=== PATIENT | male | born 1950 | race Caucasian/White ===

== ENCOUNTER 2019-08-11 16:08 | Observation (INO) ==
[2019-08-11] MEDS ORDERED: ASPIRIN PO ONE (16:20)
[2019-08-11 16:33] LABS: BASO# 0.02 X1000 (0.0-0.2); BASO% 0.3 % (0.0-0.8); EOS# 0.47 X1000 (0.0-0.7); EOS% 6.4 % (0.0-10.0); HEMATOCRIT 43.7 % (42.0-52.0); HEMOGLOBIN 14.9 g/dL (14.0-18.0); IMM GRAN# 0.01 X1000 (0.0-0.04); IMM GRAN% 0.1 % (0.0-0.5); LYMPH# 2.44 X1000 (1.2-3.4); MCHC 34.1 g/dL (33-37); MONO# 0.83 X1000 (0.11-0.59); MONO% 11.2 % (1.7-9.3); MPV 11.1 FL (7.4-10.4); NEUT# 3.63 X1000 (1.4-6.5); PLT 246 X1000 (130-400); RDW 11.9 % (11.5-14.5)
[2019-08-11 16:47] LABS: INR 0.93; PROTIME 12.9 Seconds (11.0-16.0)
[2019-08-11 16:48] LABS: PTT 30.4 Seconds (22.3-41.8)
[2019-08-11 16:56] LABS: AGAP 13; ALBUMIN 4.9 g/dL (3.5-5.0); ALKALINE PHOSPHATASE 95 U/L (32-122); BUN 13 mg/dL (8-22); CALCIUM 9.4 mg/dL (8.8-10.2); CHLORIDE 98 mmol/L (98-107); CK PROFILE 38 U/L (24-204); COSMO 278; CREATININE 0.7 mg/dL (0.7-1.2); ESTIMATED GFR > 60; GLUCOSE 113 mg/dL (70-104); GOT 14 U/L (10-34); GPT 10 U/L (10-44); POTASSIUM 3.9 mmol/L (3.5-5.1); SODIUM 139 mmol/L (136-145); TCO2 28 mmol/L (25-35); TOTAL PROTEIN 7.6 g/dL (6.3-8.3)
--- NOTE | 2019-08-11 18:31 | Vascular Study Report ---
EXAM: Carotid Ultrasound INDICATION: TIA TECHNIQUE: COMPARISON: None. FINDINGS: Right: There are atherosclerotic plaques with calcification at the carotid carotid bulb extending into the proximal ICA. The peak systolic velocity measures 88, 61, 59, 52, 49, 63, and 75 cm/s at the right subclavian artery, CCA, bifurcation, proximal ICA, mid ICA, distal ICA, and ECA, respectively. There is antegrade flow in the vertebral artery. The carotid ratio is 1.03. Left: There is extensive atherosclerotic plaque including calcification associated with the carotid bulb and extending into the proximal ICA and ECA. The peak systolic velocity measures 75, 60, 143, 120, 178, 76, and 114 cm/s at the left subclavian artery, CCA, bifurcation, proximal ICA, mid ICA, distal ICA, and ECA, respectively. There is antegrade flow in the vertebral artery. The carotid ratio is 2.94. This suggests a 60-79% stenosis. IMPRESSION: Bilateral atherosclerotic plaque as described that is worst on the left with flow dynamics on the left suggesting 60-79% stenosis of the proximal left ICA. Electronically signed by Jona Umana 08/11/2019 6:28 PM
--- NOTE | 2019-08-11 18:42 | Diag Imaging Result Doc PS360 ---
EXAM: CT HEAD W/O CONTRAST INDICATION: RIGHT WEAKNESS TECHNIQUE: This exam was performed using automated exposure control, adjustment of mA or kV according to patient size, and/or use of iterative reconstruction technique. COMPARISON: None. FINDINGS: There is no definite acute infarct given the limited sensitivity of CT versus MRI. There is no discrete intracranial mass, mass effect, or intracranial hemorrhage. The surrounding soft tissues and bony structures are essentially unremarkable. IMPRESSION: No evidence of acute intracranial pathology by CT. Electronically signed by Jona Umana 08/11/2019 6:40 PM
--- NOTE | 2019-08-11 18:44 | EKG Report ---
Test Performed on : 08/11/2019 4:15:30 PM Test Reason : CHEST PAIN Blood Pressure : / mmHG Vent. Rate : 081 BPM Atrial Rate : 081 BPM P-R Int : 162 ms QRS Dur : 084 ms QT Int : 396 ms P-R-T Axes : 076 -09 055 degrees QTc Int : 460 ms Normal sinus rhythm. Possible Left atrial enlargement Borderline ECG When compared with ECG of 17-JUL-2019 15:55, (Unconfirmed) No significant change was found Unconfirmed Result
[2019-08-11] MEDS: NORCO-7.5 PO SCH ×2 (18:45→23:52)
[2019-08-11] MEDS ORDERED: APRESOLINE PO SCH (18:45)
--- NOTE | 2019-08-11 18:50 | PROVIDER DOCUMENTATION ---
This chart was entered by Tevin Horowitz Scribe, acting as scribe for Lakhwinder Cantrell MD. HPI-Neurological Disorder - General Chief Complaint: Chest Pain Stated Complaint: CHEST PAIN,SOB Time Seen by Provider: 08/11/19 16:19 Source: patient Allergies/Adverse Reactions: Patient Allergies Allergy/AdvReac Type Severity Reaction Status Date / Time No Known Allergies Allergy Verified 03/04/15 11:23 Home Medications: Home Medication List Medication Instructions Recorded Confirmed Last Taken Type Meclizine HCl 25 mg PO TID PRN #21 tab 07/17/19 Unknown Rx Ondansetron Odt [Zofran 4 mg Odt] 4 mg PO Q6H PRN PRN #20 tab 07/17/19 Unknown Rx Polyethylene Glycol 3350 [Miralax] 17 gm PO DAILY #30 powd.pack 07/17/19 Unknown Rx - History of Present Illness-Neuro Nature of Presenting Problem: Pt is a 69 y/o M who reports this morning he had a dizzy spell and felt weakness on his right side where he could not move his arm and right foot the way he wanted. He says he thinks he is alright now. Severity: reports: mild Onset/Duration: reports: this morning Timing: reports: gone now Context: reports: none Character of Altered Mental Status: reports: other (right sided weakness) Character of Deficits: reports: new weakness New weakness or altered sensation location:: reports: RUE, RLE Cognitive Baseline: alert, oriented x3 Gait Baseline: walks without assistance Associated Symptoms: reports: dizziness. denies: fever/chills, seizures, slurred speech, vision changes Similar Symptoms Previously?: Yes Recently seen or treated by another doctor?: No Review of Systems - Adult - REVIEW OF SYSTEMS - ADULT Constitutional: denies: chills, fever Eyes: reports: no symptoms reported Ears, Nose, Mouth & Throat: reports: no symptoms reported Cardiovascular: denies: chest pain, edema Respiratory: reports: no symptoms reported Gastrointestinal: denies: nausea, vomiting Genitourinary: denies: dysuria, discharge Musculoskeletal: denies: back pain, neck pain Integumentary: reports: no symptoms reported Neurological: reports: dizziness/vertigo, loss of balance. denies: headache/migraines, slurred speech Psychiatric: denies: anxiety, insomnia, panic attacks Endocrine: reports: no symptoms reported Hematologic/Lymphatic: reports: no symptoms reported Allergic/Immunologic: reports: no symptoms reported All Other Systems: Reviewed and Negative Past History - Adult - PAST MEDICAL HISTORY-ADULT Review of Records: reports: Old Records Reviewed, Nursing Assessment Review, Medications Reviewed Major Childhood Illnesses: reports: denies history Cardiovascular: reports: denies history Respiratory: reports: denies history Gastrointestinal: reports: denies history Obstetrical/Gynecological: reports: denies history Genitourinary: reports: denies history Musculoskeletal: reports: denies history Neurological: reports: denies history Endocrine/Immune: reports: denies history Other Conditions: reports: denies history - IMMUNIZATION STATUS Childhood Immunizations: See Nurse Assessment Flu Vaccine: See Nurse Assessment - FAMILY HISTORY Family History: reviewed, not pertinent - SOCIAL HISTORY Smoking: greater than 1 pack/day Substance Use: alcohol Alcohol Use Frequency: occasionally Living Situation: family Physical Exam- Neurological - Physical Exam-Neuro Initial Vital Signs Reviewed: Yes General Appearance: appears well, alert, no apparent distress Eye Exam: bilateral eye: normal inspection, PERRL HENMT: moist mucous membranes, normal ENT inspection Head Injury: no evidence of injury. negative: active bleeding Neck: full range of motion, supple, normal inspection Respiratory: lungs clear, no pleuratic chest pain, no respiratory distress, no accessory muscle use Cardiovascular: normal peripheral pulses, regular rate, rhythm Abdominal Exam: normal bowel sounds, non tender Extremity: normal range of motion, non-tender, normal gait epidemiology internship Exam: normal hearing, normal speech, PERRL Coordination/Gait: normal finger to nose, normal gait Motor/Sensory: no motor deficit, no sensory deficit, no pronator drift Neurologic: grossly normal, no motor/sensory deficits. negative: aphasia, facial droop, motor weakness Integumentary: normal color, normal turgor, warm/dry Progress - PLAN OF CARE/RESULTS Progress/Plan/Lab Results: Vital Signs - 8 hr 08/11/19 16:17 08/11/19 18:35 Temperature 98.2 F 98.1 F Pulse Rate 77 65 Respiratory Rate 18 21 Blood Pressure 178/114 145/93 O2 Sat by Pulse Oximetry 96 95 Laboratory Results - last 24 hr 08/11/19 08/11/19 08/11/19 16:15 16:15 16:15 WBC RBC Hgb Hct MCV MCH MCHC RDW Std Deviation Plt Count MPV Immature Gran % (Auto) Neut % (Auto) Lymph % (Auto) Citrus % (Auto) Eos % (Auto) Baso % (Auto) Immature Gran # (Auto) Neut # (Auto) Lymph # (Auto) Citrus # (Auto) Eos # (Auto) Baso # (Auto) PT INR PTT (Actin FS) Sodium 139 Potassium 3.9 Chloride 98 Carbon Dioxide 28 Anion Gap 13 BUN 13 Creatinine 0.7 Estimated GFR/1.73 m2 > 60 BUN/Creatinine Ratio 19 Glucose 113 H Calculated Osmolality 278 Calcium 9.4 Total Bilirubin 0.50 AST 14 ALT 10 Alkaline Phosphatase 95 Creatine Kinase 38 Troponin T High Sens 8 Bbr-B-Oufakzymtqn Pept 102 Total Protein 7.6 Albumin 4.9 Globulin 3.0 Albumin/Globulin Ratio 2.0 08/11/19 08/11/19 16:15 16:15 WBC 7.40 RBC 4.80 Hgb 14.9 Hct 43.7 MCV 91.0 MCH 31.0 MCHC 34.1 RDW Std Deviation 11.9 Plt Count 246 MPV 11.1 H Immature Gran % (Auto) 0.1 Neut % (Auto) 49.0 Lymph % (Auto) 33.0 Citrus % (Auto) 11.2 H Eos % (Auto) 6.4 Baso % (Auto) 0.3 Immature Gran # (Auto) 0.01 Neut # (Auto) 3.63 Lymph # (Auto) 2.44 Citrus # (Auto) 0.83 H Eos # (Auto) 0.47 Baso # (Auto) 0.02 PT 12.9 INR 0.93 PTT (Actin FS) 30.4 Sodium Potassium Chloride Carbon Dioxide Anion Gap BUN Creatinine Estimated GFR/1.73 m2 BUN/Creatinine Ratio Glucose Calculated Osmolality Calcium Total Bilirubin AST ALT Alkaline Phosphatase Creatine Kinase Troponin T High Sens Qlw-H-Uncdprjdhxv Pept Total Protein Albumin Globulin Albumin/Globulin Ratio Orders Category Date Time Status Admit - [facility] Routine AdmDCTranf 08/11/19 18:35 Active Activity - Bed Rest with BRP ORDERED Care 08/11/19 18:35 Active Call Admitting on Arrival AT ADMISSION Care 08/11/19 18:37 Active Cardiac Monitoring DIRECTED Care 08/11/19 16:20 Active Neurological Check Q2H Care 08/11/19 18:35 Active Oxygen Therapy- ED Nursing DIRECTED Care 08/11/19 16:20 Active Saline Loc NOW Care 08/11/19 16:20 Active Z-Document. for Tele Applied ORDERED Care 08/11/19 18:37 Active Heart Healthy Diet Diet 08/11/19 18:38 Active CHEST-2 VIEWS [RAD] Stat Exams 08/11/19 16:[address] HEAD W/O CONTRAST [CT] Stat Exams 08/11/19 17:56 Completed CBC WITH ELECTRONIC DIFF [HEME] Stat Lab 08/11/19 16:15 Completed CK PROFILE [SP CHEM] Stat Lab 08/11/19 16:15 Completed COMPREHENSIVE METABOLIC PANEL [CHEM] Stat Lab 08/11/19 16:15 Completed PRO B-NATRIURETIC PEPTIDE Stat Lab 08/11/19 16:15 Completed PROTIME WITH INR [COAG] Stat Lab 08/11/19 16:15 Completed PTT [COAG] Stat Lab 08/11/19 16:15 Completed TROPONIN T HIGH SENSITIVITY Stat Lab 08/11/19 16:15 Completed Aspirin Med 08/11/19 16:20 Discontinued 325 mg PO NOW ONE Hydralazine [Apresoline] Med 08/11/19 18:45 Ordered 10 mg PO Q76H Hydrocodone/APAP 7.5 mg/325 mg [[place]-7.5] Med 08/11/19 18:45 Ordered 1 each PO Q6H CP/SOB/Palp >45 yrs of Age Stat Oth 08/11/19 16:20 Ordered Oxygen Device Routine Oth 08/11/19 18:37 Active Telemetry [OM.EQ] Routine Oth 08/11/19 18:35 Active Carotid Ultrasound Stat Ther 08/11/19 16:51 Completed EKG [EKG] Stat Ther 08/11/19 16:20 Draft Transfer/Admit Order [TRANSFER] Routine Transfer 08/11/19 18:34 Ordered Result Diagrams: 08/11/19 16:15 08/11/19 16:15 - REASSESSMENT Reassessment #1 Time Reassessed: 16:45 (Pt reported he felt some weakness again in his right arm with some tremor when reaching) Status: worsening - EKG 1 Time of EKG reading by physician:: 16:15 EKG Read and Signed by:: Lakhwinder Cantrell EKG Interpretation (*Must complete 3 of following elements*): Abnormal Rate: 81 Rhythm: NSR Ferron: normal Comments: Possible left atrial enlargement Departure - Departure Date of Disposition Decision: 08/11/19 Time of Disposition Decision: 18:47 DIAGNOSIS: TIA (transient ischemic attack) Disposition: ADMITTED INPATIENT 09 Certified Medical Emergency: Emergent Condition: Stable Referrals and Follow-Ups: Kevin Dougherty [Primary Care Provider] - - Critical Care Note This patient required my direct & personal management of CC.: Yes Total Time (mins): 30 Critical Care Statement: This patient required my direct personal management to treat or rule out processes, the absence of which, could potentiallly result in sudden, clinically significant life or limb threatening deterioration. Attestation - Physician/ GETACHEW Attestation Patient care was provided by Advanced Practice Provider:: No The physician spent face to face time with patient:: Yes Advanced Practice Provider documentation review:: Supervising physician onsite and consulted in the evaluation and care of this patient. The physician did have a face to face encounter with the patient. - NIH Stroke Scale Level of Consciousness: 0-Alert LOC Questions (ask month and age): 0-Answers Both Correctly LOC Commands (ask to open & close eyes;make a fist, let go): 0-Obeys Both Correctly Best Gaze (horizontal eye movement): 0-Normal Visual (use finger movement, counting or visual threat): 0-No Visual Loss Facial Palsy (show teeth or raise eyebrows & close eyes tght: 0-Symmetrical Movement Motor Function-left arm: 0-Normal Motor Function-right arm: 1-Drift Motor Function-left le-Normal Motor Function-right le-Drift Limb Ataxia(nhdfce-kdfz-ocxcor, or heel to castillo): 0-No Ataxia Sensory(pin prick to face,arms,trunk,legs-compare side/side): 0-No Ataxia Best Language(name item/read sentence.Ex-Down to Earth): 0-No Aphasia Dysarthria(Pt read words or say words Ex.Mama,Tip-Top,Thanks: 0-Normal Articulation Extinction and Inattention: 0-Normal Modified Virgilio Score Criteria: 2-slight disability This chart was documented by the indicated scribe, (Tevin Horowitz Scribe) and accurately reflects the services I performed and decisions made by me, Lakhwinder Cantrell MD, as attested by the provider's signature.
--- NOTE | 2019-08-11 18:52 | Diag Imaging Result Doc PS360 ---
EXAM: CHEST-2 VIEWS INDICATION: CHEST PAIN TECHNIQUE: 2 views COMPARISON: 07/17/2019 FINDINGS: There are stable COPD changes. There is stable minimal focal scarring at the periphery of the right midlung zone. The lungs are grossly clear, otherwise. There is no discrete pleural fluid collection or pneumothorax. The cardiomediastinal silhouette and central vasculature are grossly unremarkable. IMPRESSION: Stable COPD changes. No definite acute pathology by plain radiograph, otherwise. Electronically signed by Jona Umana 08/11/2019 6:49 PM
[2019-08-11] MEDS: APRESOLINE PO SCH (19:00)
[2019-08-12] MEDS ORDERED: FLU VACCINE IM ONE (00:22)
[2019-08-12] MEDS: APRESOLINE PO SCH ×4 (01:56→18:54)
[2019-08-12] MEDS: NORCO-7.5 PO SCH ×3 (06:02→18:53)
[2019-08-12 10:37] LABS: CHOLESTEROL 166 mg/dL (0-200); HDL 28 mg/dL (35-55); LDL 95 mg/dL; TRIGLYCERIDES 217 mg/dL (39-160); VLDL 43 mg/dL
[2019-08-12] MEDS: PLAVIX PO SCH (10:40)
[2019-08-12] MEDS: ASPIRIN PO SCH (10:40)
[2019-08-12] MEDS ORDERED: NORCO-7.5 PO PRN (11:00)
--- NOTE | 2019-08-12 11:27 | Diag Imaging Result Doc PS360 ---
EXAM: MRA BRAIN W/O CONTRAST HISTORY: ro cva TECHNIQUE: 3-D hhpw-nl-jnmcco without contrast. COMPARISON: MRI brain 08/12/2019 FINDINGS: There are appropriate flow voids within the large major intracranial vessels. No aneurysm or AVM is appreciated. No focal occlusion. IMPRESSION: No arterial occlusion within the large intracranial vessels. Electronically signed by Ana Cristina Mason 08/12/2019 11:25 AM
--- NOTE | 2019-08-12 11:44 | Diag Imaging Result Doc PS360 ---
MRI BRAIN W/WO CONTRAST - 08/12/2019 INDICATION: ro cva COMPARISON: Head CT 08/11/2019 FINDINGS: There is mild deep cerebral white matter hyperintensity compatible with chronic microvascular ischemia. This is most notable in the parietal lobes. There is no area of restricted diffusion. The ventricles and sulci are normal in size and contour. No intracranial mass or hemorrhage. No area of abnormal contrast enhancement. Midline structures including the optic chiasm and pituitary are normal. IMPRESSION: No acute process. Electronically signed by Ivan Richardson 08/12/2019 11:42 AM
--- NOTE | 2019-08-12 12:24 | HISTORY AND PHYSICAL ---
PRIMARY CARE PROVIDER: Nurse practitioner at Dr. Manuel's office. CHIEF COMPLAINT: Right-sided weakness. HISTORY OF PRESENT ILLNESS: Mr. 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 Came to the ED on 08/11/2019 complaining of right- sided weakness. He reported that the right side of his body did not work. He could not write. His right lower extremity was floppy. He denied any slurred speech. All symptoms have currently resolved. There is no fever, no chills, no cough, no headache. He does have occasional palpitations that cause him to break out in a sweat. He reported this happened last night, as well as some double vision. Chest pain last night as well that has also resolved. He reports dumping syndrome symptoms secondary to his gastrectomy. He reports that he has night sweats and has had them for years. He has lost 24 pounds over the last 5 to 6 months without trying. He reports his appetite is just okay. Workup in the ED with a head CT showed no evidence of acute intracranial pathology. Carotid Dopplers did show bilateral plaque, worse on the left at 60 to 79 percent stenosis. He was initially hypertensive, 170s/110s. He was given a full dose aspirin, started on Apresoline. We will set him up for an MRI, MRA today. Check his lipid profile. Continue on aspirin and Plavix. Start him on a high-dose statin and try to keep his blood pressures between 140s and 170s. PAST MEDICAL HISTORY: Now known hypertension, now known carotid artery disease, tobacco use and abuse. PAST SURGICAL HISTORY: 1. Gastrectomy (75% was removed) secondary to gastric ulcers that resulted in pancreatitis. 2. Wedge resection secondary to histoplasmosis in the 80s. 3. Facial cancer removed, basal and squamous cell. FAMILY HISTORY: No CVA. No MIs. Reports prostate, GI, and lung cancer in various relatives. No diabetes. SOCIAL HISTORY: He is a 1 pack per day smoker, has done so since he was 11 years old. He did report there was a time that he quit for about 7 years. No recent travel. He has not been around anybody who has recently traveled anywhere. 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 His son is at bedside. No alcohol or illicit drug use. ALLERGIES: No known drug allergies. HOME MEDICATIONS: Elverson for back pain. REVIEW OF SYSTEMS: Twelve-point review of systems was completed and negative except for those mentioned in the HPI. PHYSICAL EXAMINATION: VITAL SIGNS: Temperature is 98 degrees, heart rate 66, respirations 18, blood pressure 154/81, O2 is 98% on room air. GENERAL: Mr. Mas is a pleasant, 69-year-old gentleman who is sitting up on the edge of the bed, eating breakfast, in no acute distress. HEENT: Atraumatic, normocephalic. PERRL. NECK: Supple. Trachea midline. CARDIOVASCULAR: S1, S2 appreciated. No murmurs, gallops, or rubs noted. RESPIRATORY: Lung sounds are clear bilaterally. No rales, rhonchi, or wheezes. GI: Soft, nontender, nondistended. Surgery scars to the midline abdomen noted. EXTREMITIES: The patient is moving all extremities well. NEUROLOGIC: No focal deficits noted. DIAGNOSTIC DATA: Head CT does not show any acute intracranial processes. LABORATORY DATA: White count 7, hemoglobin and hematocrit 14 and 43, platelet count is 246,000. Sodium 139, potassium 3.9, BUN 13, creatinine 0.7, blood glucose is 113. Triglycerides 217, cholesterol 166, HDL is 28. ASSESSMENT/PLAN: 1. Transient ischemic attack versus cerebrovascular accident. Head CT was initially negative. We will check an MRI. Carotid Dopplers did show some stenosis, left greater than right. Continue with neurological checks. Initiate him on Plavix, low-dose aspirin, and a high-dose statin. 2. Carotid artery disease, left greater than right, 69 to 79 percent stenosis. Continue with Plavix and aspirin. We will set him up with general surgery at discharge for outpatient followup. 3. Tobacco use and abuse. Patient will need continued education on smoking cessation as well as the means to quit. 4. Triglyceridemia. Will continue on statin. 5. Hyperlipidemia. Will continue on statin. 6. Gastric ulcer, status post gastrectomy. 7. Known diagnosis of hypertension. We will continue with oral blood pressure medicines. 8. Known back pain. Continue with home Elverson. 9. Further recommendations to follow physician evaluation, laboratory and diagnostic data. Dictated by BAM Huang for Esequiel Schilling MD cc: Esequiel Schilling MD
[2019-08-12] MEDS ORDERED: LIPITOR PO SCH (21:00)
--- NOTE | 2019-08-12 22:53 | HISTORY AND PHYSICAL ---
The patient presented to the hospital with stroke-like symptoms. He was confused and had some change in his speech. He was dizzy. We are going to admit him to the hospital. Currently, his symptoms appear to be improving. We are going to complete his workup. Further orders as needed. cc: Esequiel Schilling MD
[2019-08-13] MEDS: NORCO-7.5 PO SCH ×2 (01:04→05:59)
[2019-08-13] MEDS: APRESOLINE PO SCH ×2 (01:05→09:02)
[2019-08-13] MEDS: PLAVIX PO SCH (09:02)
[2019-08-13] MEDS: ASPIRIN PO SCH (09:02)
[2019-08-13 09:03] VITALS: BP 138/88
--- NOTE | 2019-08-13 11:51 | DISCHARGE SUMMARY ---
ADMISSION DATE: 08/11/2019 DISCHARGE DATE: 08/13/2019 PERTINENT PROCEDURES: 1. Carotid Dopplers. Bilateral atherosclerotic plaque worst on the left, 60 to 79 percent stenosis of the proximal left ICA. 2. Head CT. No evidence of acute disease. 3. Brain MRA. No arterial occlusion within the large intracranial vessels. 4. Brain MRI, no acute process. HISTORY AND HOSPITAL COURSE: Mr. Mas is a 69-year-old male with a past medical history of gastrectomy where 75% of his stomach was removed secondary to gastric ulcers that resulted in pancreatitis. 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 Came to the ED on 08/11/2019, complaining of right-sided weakness. He just reported the right side of his body did not work and it was floppy. He could not write. He denied any slurred speech. All his symptoms have currently resolved. He has had a full neurological workup that did show some carotid stenosis, left greater than right, 60 to 79 percent. We have initiated him on low-dose aspirin, Plavix, high-dose statin, and Apresoline for his hypertension. We will set him up with an outpatient consult with General Surgery and we will have him follow up with his primary care provider to follow his blood pressures closely. He has had an uneventful hospital course. He is currently pending PT evaluation and discharge home. VITAL SIGNS: Temperature is 97.7 degrees, heart rate 80, respirations 20, blood pressure 138/88, O2 is 98% on room air. DISCHARGE DIET: Healthy heart. DISCHARGE MEDICATIONS: 1. [place] 1 each p.o. q.6 hours back pain. 2. Lipitor 80 mg p.o. at bedtime. 3. Apresoline 10 mg p.o. q.6 hours. 4. Aspirin 81 mg p.o. daily. 5. Plavix 75 mg p.o. daily. FOLLOWUP: Mr. Mas is being discharged back home with self care after pending PT evaluation and recommendations; however, all symptoms have resolved. He will follow up with General Surgery to evaluate his carotids as well as his primary care physician to continue to monitor his blood pressure. He is to take all medications as prescribed. He can return to the ED or call 911 for any worsening of symptoms. Dictated by BAM Huang for Esequiel Schilling MD cc: MD Kevin Young
--- NOTE | 2019-08-15 08:58 | DISCHARGE SUMMARY ---
ADMISSION DATE: 08/11/2019 DISCHARGE DATE: 08/13/2019 Patient seen and examined by myself. The patient presented to the hospital with acute neurologic symptoms of right-sided weakness. Thankfully, this has resolved. Discharge home in no acute distress. Carotid disease of 60 to 79% and we will continue aspirin and Plavix until he can follow up with General Surgery. Discussed the importance of stopping smoking. Follow up with blood pressure. cc: Esequiel Schilling MD
== END 2019-08-13 12:26 | disposition home or self-care (01) ==
LOC: P.ED 16:08 → P.MEDSURG 16:08
PROVIDERS: ATTEND Family Medicine